=== PATIENT | female | born 1995 | race Two or more races ===

== ENCOUNTER 2024-11-15 01:54 | Emergency (ER) | payer OTHER ==
[~2024-11-15] VITALS: Ht 152.4 cm; Wt 68.0 kg
[2024-11-15] MEDS ORDERED: PROMETHAZINE HCL 50 MG/ML AMPUL IM STA (04:21)
[2024-11-15] MEDS ORDERED: 0.9 % SODIUM CHLORIDE 1,000 ML IV STA (04:23)
[2024-11-15] MEDS ORDERED: FAMOtidine 10 MG/ML (4ML VIAL) IV PUSH STA (04:24)
[2024-11-15] MEDS ORDERED: DIPHENOXYLATE HCL/ATROPINE 1 UDTAB TABLET PO STA (04:25)
[2024-11-15] MEDS ORDERED: HYOSCYAMINE SULFATE 0.125 MG TAB.SUBL ONE (04:29)
[2024-11-15] MEDS ORDERED: ONDANSETRON HCL 2 MG/ML VIAL ONE (04:29)
[2024-11-15] MEDS ORDERED: FAMOTIDINE/PF 20 MG/2 ML VIAL ONE (04:29)
[2024-11-15] MEDS ORDERED: HYOSCYAMINE SULFATE 0.125 MG TAB.SUBL SL ONE (04:30)
[2024-11-15 04:56] LABS: HEMATOCRIT 38.1 % (36.0-45.00); HEMOGLOBIN 12.9 g/dL (12.0-15.00); MEAN CELL VOLUME 74.9 fL (80.00-100.00); MEAN CORPUSCULAR HEMOGLOBIN 25.4 pg (27.00-32.0); MEAN CORPUSCULAR HGB CONC 33.9 g/dl (32.0-36.0); PLATELET COUNT 274 K/uL (150-450); RED BLOOD COUNT 5.09 M/uL (4.00-6.00); RED CELL DISTRIBUTION WIDTH 14.7 % (11.5-14.5)
[2024-11-15 05:06] LABS: CALCIUM 8.2 mg/dL (8.5-10.1); CREATININE SERUM 0.7 mg/dL (0.55-1.02); GFR 99.64; POTASSIUM 3.84 mEq/L (3.5-5.1)
== END 2024-11-15 07:21 | disposition home or self-care (01) ==
LOC: ER 01:57
DX: K52.9 Noninfective gastroenteritis and colitis, unspecified (principal)